=== PATIENT | female | born 1985 | race Caucasian/White ===

== ENCOUNTER 2021-02-22 10:13 | Day surgery (SDC) | payer OTHER ==
[2021-02-22] VITALS (9 sets, daily range): BP systolic 115–147; BP diastolic 71–89; PULSE 73–100; TEMP 97.2–98.7
[~2021-02-22] VITALS: Ht 160 cm; Wt 79.4 kg
[2021-02-22] MEDS ORDERED: PRIL40 PO (11:10)
[2021-02-22] MEDS ORDERED: BUSPAR10 MG PO (11:10)
[2021-02-22] MEDS ORDERED: MOTRIN 800800 MG/TAB PO (12:09)
[2021-02-22] MEDS ORDERED: PERCOCET 325 MG1 TA2 PO (12:09)
--- NOTE | 2021-02-22 15:00 | NUR ---
1500-Patient to floor via bed from PACU. Recieved report from ALEJANDRO Matos . Patient A&O x4. IVF to right wrist, [place] with clear yellow urine to DD. SCDs in place. Rates pain in abdominal sites 05/20. Oxygen via NC at 2liters. VSS. Abdominal sites well approximated with glue x 4. Abodmen soft and rounded. Denies current needs oriented to room. Updated on plan of care. Sister at bedside.
--- NOTE | 2021-02-22 20:00 | NUR ---
2000 IV TO INT. TAKING PO WELL. UP TO BR WITH SOME ASSIST AND PERICARE DONE. PAD CHANGED. HS CARE DONE. TO BED.
[2021-02-23] VITALS: BP 114/79; PULSE 87; TEMP 98.3
[2021-02-23 03:30] VITALS: BP 104/54; PULSE 67; TEMP 98.4
[2021-02-23 07:50] VITALS: BP 137/86; PULSE 72; TEMP 97.4
--- NOTE | 2021-02-23 09:58 | NUR ---
Initial visit; Patient thanked Emt/Dispatcher for looking in on her and offering comfort, healing and God's blessings.
--- NOTE | 2021-02-23 11:30 | NUR ---
Discharge instructions and follow up care reviewed with pt and family at the bedside. Pt verbalized an understanding, agreed with the plan and states no questions or concerns at this time.
== END 2021-02-23 11:35 | disposition home or self-care (01) ==
LOC: SDCO 10:13 → OB 15:00 → SDCO 02-23 11:35
PROVIDERS: Obstetrics & Gynecology
DX: N94.10 Unspecified dyspareunia (principal); N93.0 Postcoital and contact bleeding; N83.292 Other ovarian cyst, left side; N88.8 Other specified noninflammatory disorders of cervix uteri; D25.9 Leiomyoma of uterus, unspecified; M06.9 Rheumatoid arthritis, unspecified; K21.9 Gastro-esophageal reflux disease without esophagitis; F17.210 Nicotine dependence, cigarettes, uncomplicated; F43.22 Adjustment disorder with anxiety; Z79.899 Other long term (current) drug therapy; Z83.3 Family history of diabetes mellitus; Z82.49 Family history of ischemic heart disease and other diseases of the circulatory system
CPT/HCPCS: OP; A4314; J0360; J0690; J1100; J1170; J1885; J2405; J2704; J3010; J7120